=== PATIENT | female | born 1975 | race American Indian/Alaskan Native ===

== ENCOUNTER 2016-12-02 07:54 | Day surgery (SDC) | payer OTHER ==
[~2016-12-02] VITALS: Ht 162.6 cm; Wt 72.3 kg
[~2016-12-02 07:54] MED LIST: VENL37.52 PO
[2016-12-02] MEDS ORDERED: LACTATED RINGERS 1,000 ML IV SCH (08:41)
[2016-12-02 08:42] VITALS: BP 142/104
[2016-12-02 09:18] LABS: HCG UR OBC PASS
[2016-12-02] MEDS ORDERED: FENTANYL PF 250 MCG/5ML ONE (10:35)
[2016-12-02] MEDS ORDERED: MIDAZOLAM 1 MG/ML, 2ML ONE (10:35)
[2016-12-02] MEDS ORDERED: NEOMY/POLYMYXIN B GU IRR. 1 ML IRRIG ONE (10:58)
[2016-12-02] MEDS ORDERED: ONDANSETRON 2MG/ML, 2ML ONE (11:13)
[2016-12-02] MEDS ORDERED: ROCURONIUM 10 MG/ML ONE (11:13)
[2016-12-02] MEDS ORDERED: DEXAMETHASONE 4 MG/ML, 1ML ONE (11:13)
[2016-12-02] MEDS ORDERED: NEOSTIGMINE 1 MG/ML, 10ML ONE (11:13)
[2016-12-02] MEDS ORDERED: PROPOFOL 10 MG/ML, 20ML ONE (11:13)
[2016-12-02] MEDS ORDERED: GLYCOPYRROLATE 0.2MG/1ML ONE (11:13)
[2016-12-02] MEDS ORDERED: KETOROLAC 30 MG/1 ML ONE (11:13)
[2016-12-02] MEDS ORDERED: CEFAZOLIN 1,000 MG ONE (11:13)
[2016-12-02] MEDS: BUPIVACAINE/PF-EPI 0.25% 1:200K ONE ×2 (11:35→11:36)
[2016-12-02] MEDS ORDERED: FENTANYL PF 100 MCG/2ML IV PRN (12:00)
[2016-12-02] MEDS ORDERED: ACETAMINOPHEN 325 MG TABLET PO PRN (12:00)
[2016-12-02] MEDS ORDERED: HYDROmorphone 1 MG/ML, 1ML IV PRN (12:00)
[2016-12-02] MEDS ORDERED: PROMETHAZINE 25 MG/ML, 1ML IV PRN (12:00)
[2016-12-02] MEDS ORDERED: OXYcodone 5 MG/5 ML ORAL.SOL UDC PO PRN (12:00)
[2016-12-02] MEDS ORDERED: OXYcodone 5 MG/5 ML ORAL.SOL UDC ONE (13:13)
== END 2016-12-02 16:10 ==
LOC: OUT 07:54
PROVIDERS: ATTEND Obstetrics & Gynecology Female Pelvic Medicine and Reconstructive Surgery
DX: N81.89 Other female genital prolapse (principal); N39.46 Mixed incontinence; E78.00 Pure hypercholesterolemia, unspecified; K21.9 Gastro-esophageal reflux disease without esophagitis
CPT/HCPCS: 52000; 57260; 58571; 81025; 88307; C1771; J0690; J1100; J1885; J2250; J2405; J2704; J2710; J3010; J7120; J3490